=== PATIENT | female | born 2000 | race Hispanic/Latino ===

== ENCOUNTER 2021-04-09 19:03 | Emergency (ER) | payer OTHER ==
[~2021-04-09] VITALS: Ht 160 cm; Wt 99.8 kg
[2021-04-09] MEDS ORDERED: ACETAMINOPHEN 325 MG TAB PO ONE (20:00)
[2021-04-09] MEDS ORDERED: ACETAMINOPHEN 325 MG TAB ONE (20:08)
== END 2021-04-09 22:06 | disposition home or self-care (01) ==
LOC: ER 19:15
DX: R50.9 Fever, unspecified (principal); J06.9 Acute upper respiratory infection, unspecified; R05.9 Cough, unspecified; R53.81 Other malaise; Z20.822 Contact with and (suspected) exposure to COVID-19
CPT/HCPCS: 83518; 87070; 99282; U0002

== ENCOUNTER 2021-04-25 20:06 | Emergency (ER) | payer OTHER ==
[~2021-04-25] VITALS: Ht 160 cm; Wt 99.8 kg
[2021-04-25 20:33] LABS: HEMATOCRIT 41.2 % (34.2-44.1)
[2021-04-25 20:37] LABS: CLARITY,URINE SL CLOUDY (CLEAR); COLOR,URINE STRAW (YELLOW); KETONES,URINE NEGATIVE (NEGATIVE); LEUKOCYTE ESTERASE ,URINE NEGATIVE (NEGATIVE); NITRITE,URINE NEGATIVE (NEGATIVE); PROTEIN,URINE DIPSTICK NEGATIVE (NEGATIVE); URINE UROBILINOGEN 1 mg/dL (0.2 - 1)
[2021-04-25 20:48] LABS: BACTERIA,URINE MANY /HPF; EPITHELIAL CELLS,URINE MANY /LPF; WBC,URINE (MAN) 0-5 /HPF (0-5)
[2021-04-25] MEDS ORDERED: CEPHALEXIN500 MG PO (20:57)
== END 2021-04-25 22:14 | disposition home or self-care (01) ==
LOC: ER 20:20
DX: N92.6 Irregular menstruation, unspecified (principal)
CPT/HCPCS: 36415; 81001; 81025; 84702; 85014; 85018; 99283